=== PATIENT | female | born 1980 | race African-American/Black ===

== ENCOUNTER 2017-03-17 12:32 | Emergency (ER) | payer MEDICAID ==
[~2017-03-17] VITALS: Ht 172.7 cm; Wt 137.0 kg
[2017-03-17 13:45] VITALS: BP 149/60
[2017-03-17] MEDS: Albuterol ud Inhalation HHN SCH ×3 (14:18→14:20)
[2017-03-17] MEDS: Ipratropium 0.02% Inh Soln 2.5ml UD HHN SCH ×3 (14:18→14:20)
[2017-03-17] MEDS ORDERED: PREDNISONE20 MG ORAL (15:05)
[2017-03-17] MEDS ORDERED: IBUPROFEN600 MG ORAL (15:05)
[2017-03-17] MEDS ORDERED: PROMETHAZINE-D118 ML ORAL (15:05)
[2017-03-17 15:40] VITALS: BP 137/71
--- NOTE | 2017-03-17 23:25 | Emergency Room Report ---
History of Present Illness General Chief Complaint: Flu Like Symptoms Source: Patient Present Illness HPI The patient is a 36-year-old female with a history of asthma presenting for one week of subjective fevers and cough. She has tried albuterol which temporarily helps her. She denies recent travel or known sick contacts. She denies other symptoms including shortness of breath, chest pain, rash, fatigue, myalgia, abdominal pain Allergies: Coded Allergies: No Known Allergies (Unverified , 03/17/17) Patient History Past Medical History: see triage record Pertinent Family History: none Last Menstrual Period: last week Reviewed Nursing Documentation: PMH: Agreed, PSxH: Agreed Nursing Documentation-PMH Past Medical History: No History, Except For Hx Hypertension: Yes Hx Asthma: Yes Review of Systems All Other Systems: negative except mentioned in HPI Physical Exam Vital Signs Date Time Temp Pulse Resp B/P (MAP) Pulse Ox O2 Delivery O2 Flow Rate FiO2 03/17/17 13:36 97.5 71 16 149/62 100 Room Air 03/17/17 14:20 21 Sp02 EP Interpretation: reviewed, normal General Appearance: no apparent distress, alert, GCS 15, non-toxic Head: normocephalic, atraumatic Eyes: bilateral eye normal inspection, bilateral eye PERRL Respiratory: chest non-tender, normal breath sounds, speaking full sentences, wheezing - bilat Cardiovascular #1: regular rate, rhythm, no edema Gastrointestinal: normal bowel sounds, non tender, soft, non-distended, no guarding, no rebound Musculoskeletal: back normal, gait/station normal, normal range of motion, non- tender Neurologic: alert, oriented x3, responsive, motor strength/tone normal, sensory intact, speech normal Psychiatric: judgement/insight normal, memory normal, mood/affect normal, no suicidal/homicidal ideation Skin: normal color, no rash, warm/dry, well hydrated Medical Decision Making PA Attestation Dr. Nassar is my supervising physician. Patient management was discussed with my supervising physician Diagnostic Impression: Primary Impression: Bronchitis ER Course The patient is a 36-year-old female with a history of asthma presenting for one week of subjective fevers and cough. Differential diagnosis include but not limited to pharyngitis, sinusitis, AOM, bronchitis, PNA PE: afebrile. No tachypnea. No apparent distress. No TTP over maxillary or frontal sinuses. Lungs: diffuse wheezing. No accessory muscle use. No resp distress Heart: RRR, no abnormal heart sounds Ears: external auditory canal clear. Non erythematous. Bilat TM intact. Cone of light present bilat. No bulging of TM. No serous fluid seen. no nasal D/C No cervical lymphad No tonsillar exudate. Uvula midline.Oropharynx non erythematous She is given a breathing treatment and feels better. Lung sounds have improved The patient will be discharged home with a prescription for Oral steroids, cough medication, and Motrin. ER precautions are given Last Vital Signs Date Time Temp Pulse Resp B/P (MAP) Pulse Ox O2 Delivery O2 Flow Rate FiO2 03/17/17 15:40 97.4 71 22 137/71 99 Room Air 03/17/17 15:13 21 Status: improved Disposition: HOME, SELF-CARE Condition: Improved Scripts Prednisone* (PREDNISONE*) 20 Mg Tablet 40 MG ORAL DAILY, #8 TAB Prov: BRIANNA THACKER P.A. 03/17/17 D-Methorphan Hb/Prometh Hcl* (PROMETHAZINE-DM SYRUP*) 118 Ml Syrup 5 ML ORAL Q6H Y for For Cough, #118 ML 0 Refills Prov: TERZIANNIDHIY P.A. 03/17/17 Ibuprofen* (MOTRIN*) 600 Mg Tablet 600 MG ORAL Q8H Y for For Pain, #30 TAB 0 Refills Prov: TERZIANBRIANNA P.A. 03/17/17 Referrals: NON PHYSICIAN (PCP) Patient Instructions: Acute Bronchitis Additional Instructions: I discussed my findings with the patient. All questions and concerns have been answered. Treatment and medication compliance have been addressed. I advised the patient that they need to follow up with PMD in 3-5 days. Return to ED if pain remains or worsens, cough worsens or remains, you notice blood in your sputum, you notice wheezing, you experience a fever, or if needed for any reason. Patient verbalized understanding of discharge instructions. BRIANNA THACKER Mar 17, 2017 23:25
== END 2017-03-17 15:40 | disposition home or self-care (01) ==
LOC: EMR 15:30
DX: J40 Bronchitis, not specified as acute or chronic (principal); J20.9 Acute bronchitis, unspecified; I10 Essential (primary) hypertension; J45.909 Unspecified asthma, uncomplicated
CPT/HCPCS: 94640; 94664; 99283

== ENCOUNTER 2018-01-11 15:36 | Emergency (ER) | payer SELFPAY ==
[~2018-01-11] VITALS: Ht 172.7 cm; Wt 136.1 kg
[~2018-01-11 15:36] MED LIST: IBUPROFEN600 MG ORAL; PREDNISONE20 MG ORAL; PROMETHAZINE-D118 ML ORAL
[2018-01-11 15:41] VITALS: BP 144/78
[2018-01-11] MEDS ORDERED: PROAIR HFA8.5 GM INH (15:45)
[2018-01-11] MEDS ORDERED: Acetaminophen 500mg (ES) tab ORAL ONE (16:00)
--- NOTE | 2018-01-11 16:01 | Emergency Room Report ---
History of Present Illness General Chief Complaint: Chest Pain Source: Patient Present Illness HPI 37-year-old female patient persists ER complaining of chest pain the past 3 days. Patient reports pain is reproducible. Reports located over ribs near the left-sided sternum. Denies recent injury or trauma. Denies history of PR. Reports history of asthma, denies breathing faculties. Reports took ibuprofen earlier today which helped limited pains. Reports pain with movement. Denies fever, abdominal pain, shortness of breath.reports was not doing any exercise when pain symptoms began. Denies history of PR or stroke. Denies history of blood pressure. denies recent appears immobilization, denies control medication, denies smoking, denies history of cancer. denies cough. Reports that she works as a [employer] which requires a lot of upper body movement. Allergies: Coded Allergies: No Known Allergies (Unverified , 03/17/17) Patient History Past Medical History: see triage record Now: No Reviewed Nursing Documentation: PMH: Agreed; PSxH: Agreed Nursing Documentation-PMH Past Medical History: No History, Except For Hx Hypertension: Yes Hx Asthma: Yes Review of Systems All Other Systems: negative except mentioned in HPI Physical Exam Vital Signs Date Time Temp Pulse Resp B/P (MAP) Pulse Ox O2 Delivery O2 Flow Rate FiO2 01/11/18 15:41 98.4 66 18 144/78 98 Room Air Sp02 EP Interpretation: reviewed, normal General Appearance: well appearing, no apparent distress, alert, GCS 15, non- toxic Head: normocephalic, atraumatic Eyes: bilateral eye normal inspection, bilateral eye PERRL ENT: hearing grossly normal, normal pharynx, no angioedema, normal voice, uvula midline, moist mucus membranes Neck: full range of motion Respiratory: lungs clear, normal breath sounds, no rhonchi, no respiratory distress, no accessory muscle use, no wheezing, speaking full sentences, other - tenderness to palpation over left side of ribs near lateral left sternal border, no bony depression, no flail chest Cardiovascular #1: regular rate, rhythm, no edema Cardiovascular #2: 2+ radial (R), 2+ radial (L) Gastrointestinal: non tender, soft, no mass, non-distended, no guarding, no rebound Musculoskeletal: back normal, digits/nails normal, gait/station normal, normal range of motion, non-tender, no calf tenderness, Lisa's Sign negative Neurologic: alert, oriented x3, responsive, motor strength/tone normal, sensory intact Psychiatric: mood/affect normal Skin: no rash Medical Decision Making PA Attestation Dr. Muñoz is my supervising Physician whom patient management has been discussed with. Diagnostic Impression: Primary Impression: Musculoskeletal chest pain ER Course Pt. presents to the ED c/o chest pain. Ddx considered but are not limited to PR, arrhythmia, DVT, PE, pneumonia, CHF, bronchitis, costochondritis, anxiety. No calf swelling, negative Lisa's sign, low suspicion for DVT pr PE per Well's criteria. Vital signs: are WNL, pt. is afebrile Ordered X-ray, EKG and pain medication. ER COURSE lungs clear to auscultation, no wheezes rhonchi or rales, tenderness to palpation noted over left ribs. Provided patient with pain medication. CXR no acute disease per the preliminary reading. EKG no ST elevation or atrial fibrillation, mild bradycardia at 57 bpm. Discuss results with patient. patient denies shortness of breath, EKG and chest x-ray unremarkable, pain is reproducible, low suspicion for PR or CHF. On PE, chest is TTP; chest pain likely musculoskeletal in nature. Patient instructed to take NSAIDs as needed for pain symptoms. do not believe patient requires cardiac workup at this time. Advised patient to follow up with primary care provider to discuss referral to cardiology for outpatient workup and stress testing. ER precautions given. DISCHARGE: -Rx provided for Tylenol for pain symptoms. At this time pt. is stable for d/c to home. Patient is resting comfortably, in no acute distress, nontoxic appearing, talking without difficulty. Will provide printed patient care instructions, and any necessary prescriptions. Patient instructed to follow with primary care provider in 1-3 days. Followup with primary care provider for further pain medication rx. Followup with grocery store bagger and eye doctor. Care plan and follow up instructions have been discussed with the patient prior to discharge. Take medications as directed. Patient questions asked and answered. Patient reports understanding and agreement to treatment plan. ER precautions given, patient instructed to return to ER immediately for any new or worsening of symptoms. - Please note that this Emergency Department Report was dictated using saperatecswitchboard mechanic technology software, occasionally this can lead to erroneous entry secondary to interpretation by the dictation equipment. EKG Diagnostic Results Rate: bradycardiac Rhythm: NSR ST Segments: no acute changes ASA given to the pt in ED: No PA Scribe Text Robert Ortega PA-C Rhythm Strip Diag. Results EP Interpretation: yes Rate: 57 Rhythm: NSR, no PVC's, no ectopy Other Impression t wave inversion in lead III PA Scribe Text Robert Ortega PA-C Chest X-Ray Diagnostic Results Chest X-Ray Diagnostic Results : Chest X-Ray Ordered: Yes # of Views/Limited/Complete: 1 View Indication: Chest Pain EP Interpretation: Yes PA Xray: Interpretation reviewed, by supervising MD, and agrees with findings. Interpretation: no consolidation, no effusion, no pneumothorax, no acute cardiopulmonary disease Impression: No acute disease MONI Scribe Text Robert Ortega PA-C Last Vital Signs Date Time Temp Pulse Resp B/P (MAP) Pulse Ox O2 Delivery O2 Flow Rate FiO2 01/11/18 15:41 98.4 66 18 144/78 98 Room Air Disposition: HOME, SELF-CARE Condition: Stable Scripts Acetaminophen* (TYLENOL EXTRA STRENGTH*) 500 Mg Tablet 500 MG ORAL Q8H PRN for Prn Headache/Temp > 101, #30 TAB 0 Refills Prov: Anil Ortega 01/11/18 Referrals: NOT CHOSEN IPA/MD,REFERRING (PCP) Patient Instructions: Costochondritis, [id number] Additional Instructions: Followup with primary care provider in 3 -5 days. Discuss referral to cardiology for cardiac workup Take medications as directed. Patient questions asked and answered. ER precautions given, patient instructed to return to ER immediately for any new or worsening of symptoms. Anil Ortega Jan 11, 2018 16:01
--- NOTE | 2018-01-11 16:32 | Diagnostic Imaging Report ---
Indication: Chest pain Comparison: None A single view chest radiograph was obtained. Findings: Cardiomediastinal appearance is within normal limits for age. The lungs are clear. Pulmonary vascularity is appropriate. The diaphragmatic contour is smooth and costophrenic angles are sharp. No pleural effusions are identified. The bones are unremarkable. Impression: No acute findings
[2018-01-11] MEDS ORDERED: TYLENOL EXTRA500 MG ORAL (17:03)
[2018-01-11 17:09] VITALS: BP 144/78
== END 2018-01-11 17:11 | disposition home or self-care (01) ==
LOC: EMR 15:58
DX: R07.89 Other chest pain (principal); I10 Essential (primary) hypertension; J45.909 Unspecified asthma, uncomplicated
CPT/HCPCS: 71045; 93005; 99283